=== PATIENT | female | born 1950 | race Caucasian/White ===

== ENCOUNTER 2017-06-26 07:36 | Outpatient (CLI) | payer OTHER ==
[~2017-06-26 07:36] MED LIST: AVAPRO300 MG PO; CIPRO500 MG PO; GLUCOPHAGE XR500 MG PO; HYTRIN2 MG; KLONOPIN1 MG/TAB PO; PAXIL20 MG PO; SINGULAIR10 MG PO; VERELAN240 MG
== END 2017-06-26 09:00 | disposition home or self-care (01) ==
LOC: LAB 07:36
DX: J30.1 Allergic rhinitis due to pollen (principal); J45.40 Moderate persistent asthma, uncomplicated; E66.01 Morbid (severe) obesity due to excess calories; A31.0 Pulmonary mycobacterial infection; J15.8 Pneumonia due to other specified bacteria